=== PATIENT | male | born 1975 | race African-American/Black ===

== ENCOUNTER 2019-10-02 11:45 | Emergency (ER) | payer MEDICAID ==
[~2019-10-02] VITALS: Ht 172.7 cm; Wt 88.0 kg
[2019-10-02 12:10] VITALS: BP 162/124
--- NOTE | 2019-10-02 12:45 | PHYS DOC ---
Past Medical History Past Medical History: Other Smoking Status: Never Smoker Alcohol Use: None General Adult EDM: Chief Complaint: OTHER COMPLAINTS HPI: HPI: Patient is a 44-year-old male with a chronic G-tube. The G-tube was dislodged accidentally today. He went to an urgent care and they replaced with a De Los Santos catheter and sent him here to have the G-tube replaced. [] Review of Systems: Review of Systems: Review of systems is unobtainable secondary to traumatic brain injury Heart Score: Risk Factors: Risk Factors: DM, Current or recent (<one month) smoker, HTN, HLP, family history of CAD, obesity. Risk Scores: Score 0 - 3: 2.5% MACE over next 6 weeks - Discharge Home Score 4 - 6: 20.3% MACE over next 6 weeks - Admit for Clinical Observation Score 7 - 10: 72.7% MACE over next 6 weeks - Early Invasive Strategies Physical Exam: PE: Constitutional: Well developed, well nourished, no acute distress, non-toxic appearance. [] HENT: Normocephalic, atraumatic, bilateral external ears normal, oropharynx moist, no oral exudates, nose normal. [] Eyes: PERRLA, EOMI, conjunctiva normal, no discharge. [] Neck: Normal range of motion, no tenderness, supple, no stridor. [] Cardiovascular:Heart rate regular rhythm, no murmur [] Lungs & Thorax: Bilateral breath sounds clear to auscultation [] Abdomen: De Los Santos catheter in place through stoma. [] Skin: Warm, dry, no erythema, no rash. [] Back: No tenderness, no CVA tenderness. [] Extremities: No tenderness, no cyanosis, no clubbing, ROM intact, no edema. [] Neurologic: Alert and interactive appropriate at baseline. [] Psychologic: He is in his usual state [] Current Patient Data: Vital Signs: Vital Signs Date Time Temp Pulse Resp B/P (MAP) Pulse Ox O2 Delivery O2 Flow Rate FiO2 10/02/19 12:10 97.9 95 16 162/124 (137) 98 Room Air 97.9 EKG: EKG: [] Radiology/Procedures: Radiology/Procedures: [] Course & Med Decision Making: Course & Med Decision Making Pertinent Labs and Imaging studies reviewed. (See chart for details) [Procedure: G-tube replacement De Los Santos catheter bulb was deflated and the catheter was removed without difficulty replacing it with a G-tube and inflating the bulb with 20 cc of sterile water. The G-tube easily flushed and lv back gastric contents. Patient tolerated the procedure well] Dragon Disclaimer: Dragon Disclaimer: This electronic medical record was generated, in whole or in part, using a voice recognition dictation system. Departure Departure Impression: Primary Impression: Malfunction of gastrostomy tube Disposition: 01 HOME, SELF-CARE Condition: IMPROVED Referrals: UNKNOWN PCP NAME (PCP) Additional Instructions: Return to the emergency department with any new or concerning symptoms. It is okay to use the G-tube JULIAN MCDANIEL DO Oct 02, 2019 12:45
== END 2019-10-02 12:52 | disposition home or self-care (01) ==
LOC: ER 11:45
DX: K94.23 Gastrostomy malfunction (principal); Y83.8 Other surgical procedures as the cause of abnormal reaction of the patient, or of later complication, without mention of misadventure at the time of the procedure; Y92.89 Other specified places as the place of occurrence of the external cause
CPT/HCPCS: 43762; 99284-25

== ENCOUNTER 2020-04-03 10:45 | Emergency (ER) | payer MEDICAID ==
[~2020-04-03] VITALS: Ht 175.3 cm; Wt 90.0 kg
[2020-04-03 11:45] VITALS: BP 145/106
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
[2020-04-03] MEDS ORDERED: ONDANSETRON PF 4 MG/2 ML VIAL. IV PRN (16:30)
[2020-04-03] MEDS ORDERED: BISACODYL 10 MG SUPP.RECT. PR PRN (20:15)
[2020-04-03] MEDS ORDERED: IOHEXOL 300 MG/ML 50 ML VIAL. IJ ONE (20:15)
[2020-04-03] MEDS ORDERED: IV RINGERS,LACTATED 1000ML 1,000 ML IV ONE (20:15)
[2020-04-03] MEDS ORDERED: ACETAMINOPHEN 650 MG SUPP.RECT. PR PRN (20:15)
[2020-04-03] MEDS ORDERED: ENALAPRILAT 1.25 MG/ML VIAL. IVP PRN (20:15)
[2020-04-03] MEDS ORDERED: CONTRAST GIVEN. MC PRN (20:30)
--- NOTE | 2020-04-03 21:03 | RAD ---
One view abdomen KUB 8:13 PM HISTORY: Feeding tube replacement AP view the abdomen was obtained after the administration of 50 cc of IV Omni 300 via the gastric feeding tube There is contrast seen within the duodenum and jejunum. There is no extravasation of contrast. IMPRESSION: No leak. Electronically signed by: Jey Mathis III, MD (04/03/2020 9:00 PM) [facility]
--- NOTE | 2020-04-03 21:44 | PDOC3 ---
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 [facility] urgent care and [facility] ER unable to flush. He cannot verbally communicate and is upset, gesturing to his groin, trying to remove a condom catheter. Caregiver notes they have tried everything to get the tube unclogged. It was replaced in ED 6 months ago, unknown if follow up has been performed. KUB pending at this time. Called for admission for further care. Patient actually pulled the PEG himself and it was replaced with a new PEG in ED with no extravasation of contrast and sent home into the care of his family and home health. 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
== END 2020-04-03 21:47 | disposition home or self-care (01) ==
LOC: ER 10:45 → UNDOADMIN 15:42 → ED HOLD 15:42
DX: K94.23 Gastrostomy malfunction (principal); I10 Essential (primary) hypertension; Y83.8 Other surgical procedures as the cause of abnormal reaction of the patient, or of later complication, without mention of misadventure at the time of the procedure; Y92.89 Other specified places as the place of occurrence of the external cause
CPT/HCPCS: 74018; 99284